=== PATIENT | male | born 1940 | race Caucasian/White ===

== ENCOUNTER 2020-02-11 14:47 | Inpatient (IN) | payer OTHER, MEDICAID ==
[~2020-02-11] VITALS: Ht 170.2 cm; Wt 64.0 kg
[2020-02-11] MEDS ORDERED: ASPIRIN 81MG TABLET PO ONE (16:15)
[2020-02-11 16:41] LABS: BASOPHILS % 1.4 % (0.0-2.0); EOSINOPHILS % 1.4 % (0.0-5.0); HEMATOCRIT. 28.7 % (42.0-52.0); HEMOGLOBIN. 9.9 g/dL (14.0-18.0); LYMPHOCYTES % 12.5 % (20.0-50.0); MEAN CORPUSCULAR HEMOGLOBIN 31.1 pg (28.0-32.0); MEAN CORPUSCULAR VOLUME 90.5 fL (80.0-94.0); MEAN PLATELET VOLUME 9.5 fl (7.4-10.4); MONOCYTES % 5.7 % (2.0-8.0); PLATELET 230 x1000/uL (130-400); RED BLOOD CELL COUNT 3.17 mill/uL (4.7-6.1)
[2020-02-11 16:45] LABS: CHLORIDE 112 mEq/L (98-107)
[2020-02-11 16:51] LABS: ETHANOL BLOOD < 10 mg/dL
[2020-02-11] MEDS: NITROGLYCERIN 0.4MG TABLET SL SL PRN ×2 (16:57→19:08)
[2020-02-11] MEDS ORDERED: IPRATROPIUM/ALBUTEROL 0.5-3(2.5)MG/3ML NEB ORI PRN (19:30)
[2020-02-11] MEDS ORDERED: ACETAMINOPHEN 325MG TABLET PO PRN ×2 (19:30)
[2020-02-11] MEDS ORDERED: DOCUSATE SODIUM 100MG CAPSULE PO PRN (19:30)
[2020-02-11] MEDS ORDERED: CLONIDINE 0.1MG TABLET PO PRN (19:30)
[2020-02-11] MEDS ORDERED: MAGNESIUM/ALUMINUM HYDROXIDE/SIMETHICONE 30ML UDC PO PRN (19:30)
[2020-02-11] MEDS ORDERED: ENOXAPARIN 40MG/0.4ML SYR SUBCUT SCH (19:30)
[2020-02-11 19:42] LABS: METHADONE URINE SCREEN NEGATIVE (NEGATIVE)
[2020-02-11 19:43] LABS: *AMPHETAMINES SCREEN URINE NEGATIVE (NEGATIVE); *BARBITURATES SCREEN URINE NEGATIVE (NEGATIVE); *BENZODIAZEPINES SCREEN URINE NEGATIVE (NEGATIVE); *COCAINE SCREEN URINE NEGATIVE (NEGATIVE); CANNABINOID URINE SCREEN NEGATIVE (NEGATIVE); OPIATES URINE SCREEN NEGATIVE (NEGATIVE); PHENCYCLIDINE URINE SCREEN NEGATIVE (NEGATIVE)
[2020-02-11 20:08] LABS: T4 FREE 1.01 ng/dL (0.76-1.46)
[2020-02-11 20:23] LABS: FOLIC ACID (FOLATE) SERUM 12.9 ng/mL (>5.38)
[2020-02-11] MEDS ORDERED: TRAMADOL 50MG TABLET PO PRN (20:38)
[2020-02-11] MEDS ORDERED: NITROGLYCERIN 0.4MG TABLET SL SL PRN (20:38)
[2020-02-11] MEDS ORDERED: MORPHINE SULFATE 2 MG/ML CPJ (NOT FOR IM USE) IV PRN (20:38)
[2020-02-11] MEDS ORDERED: GUAIFENESIN 200MG/10ML SUGAR FREE UDC PO PRN (20:39)
[2020-02-11] MEDS ORDERED: LISINOPRIL 20MG TABLET PO SCH (21:00)
[2020-02-11] MEDS ORDERED: FAMOTIDINE 20MG TABLET PO SCH (21:00)
[2020-02-11] MEDS ORDERED: ASCORBIC ACID 500 MG TABLET PO SCH (21:00)
[2020-02-11] MEDS ORDERED: ZOLPIDEM TARTRATE 5MG TABLET PO PRN (21:00)
[2020-02-11] MEDS ORDERED: METOPROLOL TARTRATE 25MG TABLET PO SCH (21:00)
[2020-02-11] MEDS ORDERED: DEXTROSE 50% WATER 50ML SYRINGE IV PRN (21:00)
[2020-02-11] MEDS: INSULIN LISPRO 100 UNITS/ML SUBCUT SCH (21:00)
[2020-02-11] MEDS: BLOOD SUGAR DIAGNOSTIC STRIP TEST SCH (21:00)
[2020-02-11] MEDS ORDERED: NA PHOS,M-B/NA PHOS,DI-BA ENEMA 118ML PR PRN (21:00)
[2020-02-11 23:11] LABS: CREATINE KINASE 57 IU/L (39-308)
[2020-02-11 23:12] LABS: CREATINE KINASE MB FRACTION < 1.0 ng/mL (0.5-3.6)
[2020-02-11] MEDS: METOPROLOL TARTRATE 25MG TABLET PO SCH (23:15)
[2020-02-12] VITALS: BP_SYST 123; BP_SYST 98; BP_DIAS 103; BP_DIAS 68
[2020-02-12] MEDS ORDERED: HYDR25TA PO (02:42)
[2020-02-12] MEDS ORDERED: ESOM40CA PO (02:42)
[2020-02-12] MEDS ORDERED: AMLO5TAB88 PO (02:42)
[2020-02-12 04:00] VITALS: BP 184/73
[2020-02-12] MEDS: BLOOD SUGAR DIAGNOSTIC STRIP TEST SCH ×4 (05:52→20:42)
[2020-02-12 06:24] LABS: CREATINE KINASE 60 IU/L (39-308); CREATINE KINASE MB FRACTION 1.2 ng/mL (0.5-3.6)
[2020-02-12] MEDS: INSULIN LISPRO 100 UNITS/ML SUBCUT SCH ×4 (07:50→20:43)
[2020-02-12] MEDS: METOPROLOL TARTRATE 25MG TABLET PO SCH ×2 (09:00→20:41)
[2020-02-12] MEDS ORDERED: LISINOPRIL 20MG TABLET PO SCH (09:00)
[2020-02-12] MEDS ORDERED: ASPIRIN 325MG EC TABLET PO SCH (09:00)
[2020-02-12] MEDS: ZINC SULFATE 220 MG ( 50 ) CAPSULE PO SCH (09:12)
[2020-02-12] MEDS: ASCORBIC ACID 500 MG TABLET PO SCH ×2 (09:12→20:40)
[2020-02-12] MEDS: FAMOTIDINE 20MG TABLET PO SCH ×2 (09:12→20:41)
[2020-02-12] MEDS: ENOXAPARIN 30MG/0.3ML SYR SUBCUT SCH (09:13)
[2020-02-12] MEDS: FERROUS SULFATE 325MG TABLET PO SCH ×2 (10:48→17:29)
[2020-02-12] MEDS: AMLODIPINE 5MG TABLET PO SCH ×2 (10:51→20:40)
[2020-02-12] MEDS: ONDANSETRON HCL 4MG/2ML INJ IV PRN (10:54)
[2020-02-12 11:52] LABS: HEMATOCRIT. 30.6 % (42.0-52.0); HEMOGLOBIN. 10.2 g/dL (14.0-18.0); MEAN CORPUSCULAR HEMOGLOBIN 30.5 pg (28.0-32.0); MEAN CORPUSCULAR VOLUME 91.6 fL (80.0-94.0); MEAN PLATELET VOLUME 10.6 fl (7.4-10.4); PLATELET 244 x1000/uL (130-400); RED BLOOD CELL COUNT 3.34 mill/uL (4.7-6.1); RED CELL DISTRIBUTION WIDTH 14.6 % (11.6-14.6)
[2020-02-12 12:00] VITALS: BP 136/68
[2020-02-12] MEDS ORDERED: PNEUMOCOCCAL 23-VAL P-SAC VAC 0.5 ML IM ONE (12:00)
[2020-02-12] MEDS ORDERED: INFLUENZA VIRUS VACCINE(AFLURIA) 0.5ML SYR IM ONE (12:00)
[2020-02-12 12:25] LABS: PLATELET ESTIMATE NORMAL
[2020-02-12 20:00] VITALS: BP 171/68
[2020-02-12] MEDS: ATORVASTATIN CALCIUM 20MG TABLET PO SCH (20:41)
[2020-02-13] VITALS: BP 159/69
[2020-02-13 06:25] LABS: BASOPHILS % 0.8 % (0.0-2.0); HEMATOCRIT. 26.5 % (42.0-52.0); LYMPHOCYTES % 17.4 % (20.0-50.0); MEAN CORPUSCULAR HEMOGLOBIN 30.6 pg (28.0-32.0); MEAN CORPUSCULAR VOLUME 90.1 fL (80.0-94.0); MEAN PLATELET VOLUME 9.9 fl (7.4-10.4); MONOCYTES % 6.3 % (2.0-8.0); NEUTROPHILS % 72.5 % (40.0-76.0); PLATELET 217 x1000/uL (130-400); RED BLOOD CELL COUNT 2.94 mill/uL (4.7-6.1); RED CELL DISTRIBUTION WIDTH 14.4 % (11.6-14.6)
[2020-02-13] MEDS: BLOOD SUGAR DIAGNOSTIC STRIP TEST SCH ×4 (06:52→21:54)
[2020-02-13] MEDS: INSULIN LISPRO 100 UNITS/ML SUBCUT SCH ×4 (06:52→21:55)
[2020-02-13 08:00] VITALS: BP 141/63
[2020-02-13] MEDS: ASPIRIN 81MG EC TABLET PO SCH (08:48)
[2020-02-13] MEDS: ASCORBIC ACID 500 MG TABLET PO SCH ×2 (08:48→21:54)
[2020-02-13] MEDS: FERROUS SULFATE 325MG TABLET PO SCH ×2 (08:48→17:32)
[2020-02-13] MEDS: ZINC SULFATE 220 MG ( 50 ) CAPSULE PO SCH (08:48)
[2020-02-13] MEDS: FAMOTIDINE 20MG TABLET PO SCH ×2 (08:48→21:54)
[2020-02-13] MEDS: ENOXAPARIN 30MG/0.3ML SYR SUBCUT SCH (08:48)
[2020-02-13] MEDS: AMLODIPINE 5MG TABLET PO SCH ×2 (08:49→21:53)
[2020-02-13] MEDS: METOPROLOL TARTRATE 25MG TABLET PO SCH ×2 (08:49→21:00)
[2020-02-13 12:00] VITALS: BP 122/40
[2020-02-13 16:00] VITALS: BP 122/50
[2020-02-13 20:00] VITALS: BP 121/71
[2020-02-13] MEDS: ATORVASTATIN CALCIUM 20MG TABLET PO SCH (21:54)
[2020-02-14] VITALS: BP 125/71
[2020-02-14 04:00] VITALS: BP 137/53
[2020-02-14] MEDS: BLOOD SUGAR DIAGNOSTIC STRIP TEST SCH ×4 (06:30→20:17)
[2020-02-14] MEDS: INSULIN LISPRO 100 UNITS/ML SUBCUT SCH ×4 (07:50→20:17)
[2020-02-14] MEDS: ASCORBIC ACID 500 MG TABLET PO SCH ×2 (08:49→20:54)
[2020-02-14] MEDS: FERROUS SULFATE 325MG TABLET PO SCH ×2 (08:49→17:48)
[2020-02-14] MEDS: AMLODIPINE 5MG TABLET PO SCH ×2 (08:49→20:54)
[2020-02-14] MEDS: ZINC SULFATE 220 MG ( 50 ) CAPSULE PO SCH (08:49)
[2020-02-14] MEDS: ASPIRIN 81MG EC TABLET PO SCH (08:49)
[2020-02-14] MEDS: METOPROLOL TARTRATE 25MG TABLET PO SCH ×2 (08:50→20:55)
[2020-02-14] MEDS: ENOXAPARIN 30MG/0.3ML SYR SUBCUT SCH (08:50)
[2020-02-14] MEDS: FAMOTIDINE 20MG TABLET PO SCH ×2 (08:50→20:54)
[2020-02-14 09:54] VITALS: BP 134/51
[2020-02-14] MEDS ORDERED: REGADENOSON 0.4 MG/5 ML IV NR (11:45)
[2020-02-14 17:05] VITALS: BP 149/51
[2020-02-14 20:00] VITALS: BP 149/73
[2020-02-14] MEDS: ATORVASTATIN CALCIUM 20MG TABLET PO SCH (20:54)
[2020-02-15] VITALS: BP 137/75
[2020-02-15 04:00] VITALS: BP 159/78
[2020-02-15] MEDS: BLOOD SUGAR DIAGNOSTIC STRIP TEST SCH ×4 (06:36→21:00)
[2020-02-15 08:00] VITALS: BP 177/66
[2020-02-15] MEDS: ENOXAPARIN 30MG/0.3ML SYR SUBCUT SCH (09:12)
[2020-02-15] MEDS: ZINC SULFATE 220 MG ( 50 ) CAPSULE PO SCH (09:12)
[2020-02-15] MEDS: ASPIRIN 81MG EC TABLET PO SCH (09:12)
[2020-02-15] MEDS: FERROUS SULFATE 325MG TABLET PO SCH ×2 (09:13→17:50)
[2020-02-15] MEDS: METOPROLOL TARTRATE 25MG TABLET PO SCH ×2 (09:13→21:00)
[2020-02-15] MEDS: ASCORBIC ACID 500 MG TABLET PO SCH ×2 (09:13→21:00)
[2020-02-15] MEDS: AMLODIPINE 5MG TABLET PO SCH ×2 (09:13→21:00)
[2020-02-15] MEDS: FAMOTIDINE 20MG TABLET PO SCH (09:13)
[2020-02-15] MEDS: INSULIN LISPRO 100 UNITS/ML SUBCUT SCH ×4 (09:16→21:00)
[2020-02-15 12:00] VITALS: BP 151/70
[2020-02-15 13:37] LABS: BG CARBOXYHEMOGLOBIN 0.3 % (0.5-1.5); BG DEOXYHEMOGLOBIN 3.9 % (0.0-5.0); BG FRACTION INSPIRED OXYGEN 21; BG HCO3 ACT 19.3 mmol/L (22.0-26.0); BG OXYGEN SATURATION 96.1 % (92.0-98.5); BG OXYHEMOGLOBIN 95.8 % (94.0-97.0); BG PCO2 33.1 mmHg (35.0-45.0); BG PH 7.384 (7.350-7.450); BG PO2 87.5 mmHg (75.0-100.0); BG SAMPLE SITE RIGHT RADIAL; BG TOTAL HEMOGLOBIN 10.4 g/dL (12.0-18.0); BG VENT MODE ROOM AIR
[2020-02-15 13:59] LABS: BASOPHILS % 0.8 % (0.0-2.0); EOSINOPHILS % 0.3 % (0.0-5.0); HEMATOCRIT. 29.4 % (42.0-52.0); HEMOGLOBIN. 10.3 g/dL (14.0-18.0); LYMPHOCYTES % 8.4 % (20.0-50.0); MEAN CORPUSCULAR HEMOGLOBIN 31.3 pg (28.0-32.0); MEAN CORPUSCULAR VOLUME 89.1 fL (80.0-94.0); MEAN PLATELET VOLUME 9.9 fl (7.4-10.4); MONOCYTES % 3.3 % (2.0-8.0); NEUTROPHILS % 87.2 % (40.0-76.0); PLATELET 260 x1000/uL (130-400); RED CELL DISTRIBUTION WIDTH 14.5 % (11.6-14.6)
[2020-02-15 16:00] VITALS: BP 167/75
[2020-02-15] MEDS ORDERED: VANCOMYCIN 1500MG in DEXTROSE 5% WATER 250ML IV SCH (16:00)
[2020-02-15] MEDS: LOSARTAN POTASSIUM 25 MG TABLET PO SCH (16:51)
[2020-02-15] MEDS: ONDANSETRON HCL 4MG/2ML INJ IV PRN (16:51)
[2020-02-15 20:00] VITALS: BP 157/92
[2020-02-15] MEDS: LORAZEPAM 2MG/ML CPJ IV PRN (20:53)
[2020-02-15] MEDS: ATORVASTATIN CALCIUM 20MG TABLET PO SCH (21:01)
[2020-02-15] MEDS: CEFAZOLIN 2,000 MG in DEXT 5% WATER 100 ML IV SCH (23:51)
[2020-02-16] VITALS (7 sets, daily range): BP systolic 127–206; BP diastolic 55–83
[2020-02-16] MEDS: FERROUS SULFATE 325MG TABLET PO SCH ×2 (06:30→17:45)
[2020-02-16] MEDS: BLOOD SUGAR DIAGNOSTIC STRIP TEST SCH ×4 (06:30→22:05)
[2020-02-16] MEDS: INSULIN LISPRO 100 UNITS/ML SUBCUT SCH ×4 (06:59→21:00)
[2020-02-16 08:45] LABS: BASOPHILS % 0.8 % (0.0-2.0); EOSINOPHILS % 2.7 % (0.0-5.0); HEMATOCRIT. 30.1 % (42.0-52.0); HEMOGLOBIN. 10.4 g/dL (14.0-18.0); LYMPHOCYTES % 14.3 % (20.0-50.0); MEAN CORPUSCULAR HEMOGLOBIN 31.1 pg (28.0-32.0); MEAN CORPUSCULAR VOLUME 90.1 fL (80.0-94.0); MONOCYTES % 4.9 % (2.0-8.0); NEUTROPHILS % 77.3 % (40.0-76.0); PLATELET 263 x1000/uL (130-400); RED BLOOD CELL COUNT 3.34 mill/uL (4.7-6.1); RED CELL DISTRIBUTION WIDTH 14.5 % (11.6-14.6)
[2020-02-16 08:58] LABS: PROTHROMBIN TIME 10.7 sec (9.6-11.0)
[2020-02-16] MEDS: LOSARTAN POTASSIUM 25 MG TABLET PO SCH (09:06)
[2020-02-16] MEDS: ZINC SULFATE 220 MG ( 50 ) CAPSULE PO SCH (09:06)
[2020-02-16] MEDS: ASPIRIN 81MG EC TABLET PO SCH (09:06)
[2020-02-16] MEDS: FAMOTIDINE 20MG TABLET PO SCH (09:06)
[2020-02-16] MEDS: ASCORBIC ACID 500 MG TABLET PO SCH ×2 (09:06→21:54)
[2020-02-16] MEDS: METOPROLOL TARTRATE 25MG TABLET PO SCH ×2 (09:07→21:53)
[2020-02-16] MEDS: AMLODIPINE 5MG TABLET PO SCH ×2 (09:08→21:53)
[2020-02-16 09:26] LABS: VITAMIN B12 SERUM 322 pg/mL (211-911)
[2020-02-16] MEDS: ENOXAPARIN 30MG/0.3ML SYR SUBCUT SCH (09:42)
[2020-02-16] MEDS: CEFAZOLIN 2,000 MG in DEXT 5% WATER 100 ML IV SCH ×2 (09:43→21:51)
[2020-02-16] MEDS ORDERED: VANCOMYCIN 1,000 MG in DEXT 5% WATER 250 ML IV SCH (14:00)
[2020-02-16] MEDS: RIFAMPIN 300MG CAPSULE PO SCH (17:45)
[2020-02-16] MEDS: ATORVASTATIN CALCIUM 20MG TABLET PO SCH (21:54)
[2020-02-17] VITALS: BP 119/74
[2020-02-17 04:00] VITALS: BP 125/65
[2020-02-17] MEDS: BLOOD SUGAR DIAGNOSTIC STRIP TEST SCH ×4 (07:20→20:41)
[2020-02-17] MEDS: INSULIN LISPRO 100 UNITS/ML SUBCUT SCH ×4 (07:50→20:44)
[2020-02-17 08:00] VITALS: BP 136/70
[2020-02-17] MEDS: METOPROLOL TARTRATE 25MG TABLET PO SCH ×2 (09:19→20:52)
[2020-02-17] MEDS: CEFAZOLIN 2,000 MG in DEXT 5% WATER 100 ML IV SCH ×2 (09:19→20:41)
[2020-02-17] MEDS: ASPIRIN 81MG EC TABLET PO SCH (09:21)
[2020-02-17] MEDS: FAMOTIDINE 20MG TABLET PO SCH (09:21)
[2020-02-17] MEDS: AMLODIPINE 5MG TABLET PO SCH ×2 (09:21→20:27)
[2020-02-17] MEDS: ASCORBIC ACID 500 MG TABLET PO SCH ×2 (09:21→20:27)
[2020-02-17] MEDS: ZINC SULFATE 220 MG ( 50 ) CAPSULE PO SCH (09:21)
[2020-02-17] MEDS: FERROUS SULFATE 325MG TABLET PO SCH ×2 (09:21→17:50)
[2020-02-17] MEDS: LOSARTAN POTASSIUM 25 MG TABLET PO SCH (09:21)
[2020-02-17] MEDS: RIFAMPIN 300MG CAPSULE PO SCH (09:21)
[2020-02-17] MEDS: ENOXAPARIN 30MG/0.3ML SYR SUBCUT SCH (09:26)
[2020-02-17] MEDS ORDERED: LIDOCAINE HCL 1% 20ML VIAL (Pyxis) INJ ONE (09:39)
[2020-02-17] MEDS ORDERED: SODIUM BICARBONATE 4% (2.4MEQ) 5ML VIAL IV ONE (09:39)
[2020-02-17 11:30] LABS: HEMATOCRIT. 29.6 % (42.0-52.0); HEMOGLOBIN. 10.3 g/dL (14.0-18.0); MEAN CORPUSCULAR HEMOGLOBIN 31.2 pg (28.0-32.0); MEAN CORPUSCULAR VOLUME 89.6 fL (80.0-94.0); PLATELET 264 x1000/uL (130-400); RED BLOOD CELL COUNT 3.31 mill/uL (4.7-6.1); RED CELL DISTRIBUTION WIDTH 14.7 % (11.6-14.6)
[2020-02-17 12:00] VITALS: BP 156/66
[2020-02-17] MEDS ORDERED: ZINC220T4 MT (14:39)
[2020-02-17] MEDS ORDERED: RIFA300C4 PO (14:39)
[2020-02-17] MEDS ORDERED: ASCO-339 MT (14:39)
[2020-02-17] MEDS ORDERED: ASPI-1497 MT (14:39)
[2020-02-17] MEDS ORDERED: FERR325T23 MT (14:39)
[2020-02-17] MEDS ORDERED: ATOR20TA MT (14:39)
[2020-02-17] MEDS ORDERED: METO25TA6 PO (14:39)
[2020-02-17 16:00] VITALS: BP 172/61
[2020-02-17 16:50] LABS: PLATELET ESTIMATE NORMAL
[2020-02-17 20:00] VITALS: BP 158/56
[2020-02-17] MEDS: ATORVASTATIN CALCIUM 20MG TABLET PO SCH (20:27)
[2020-02-18 00:36] VITALS: BP 144/64
[2020-02-18 04:00] VITALS: BP 173/63
[2020-02-18] MEDS: BLOOD SUGAR DIAGNOSTIC STRIP TEST SCH ×4 (07:20→21:57)
[2020-02-18] MEDS: INSULIN LISPRO 100 UNITS/ML SUBCUT SCH ×4 (07:50→22:11)
[2020-02-18] MEDS: CEFAZOLIN 2,000 MG in DEXT 5% WATER 100 ML IV SCH ×3 (08:00→22:45)
[2020-02-18 08:08] VITALS: BP 129/75
[2020-02-18] MEDS: LOSARTAN POTASSIUM 25 MG TABLET PO SCH (08:30)
[2020-02-18] MEDS: ASPIRIN 81MG EC TABLET PO SCH (08:30)
[2020-02-18] MEDS: ASCORBIC ACID 500 MG TABLET PO SCH ×2 (08:30→21:54)
[2020-02-18] MEDS: FAMOTIDINE 20MG TABLET PO SCH (08:30)
[2020-02-18] MEDS: RIFAMPIN 300MG CAPSULE PO SCH (08:30)
[2020-02-18] MEDS: FERROUS SULFATE 325MG TABLET PO SCH ×2 (08:30→17:48)
[2020-02-18] MEDS: METOPROLOL TARTRATE 25MG TABLET PO SCH ×2 (08:31→21:55)
[2020-02-18] MEDS: AMLODIPINE 5MG TABLET PO SCH ×2 (08:31→21:57)
[2020-02-18] MEDS: ZINC SULFATE 220 MG ( 50 ) CAPSULE PO SCH (08:31)
[2020-02-18] MEDS: ENOXAPARIN 30MG/0.3ML SYR SUBCUT SCH (08:35)
[2020-02-18 12:10] VITALS: BP 130/60
[2020-02-18] MEDS ORDERED: HALOPERIDOL LACTATE 5MG/ML VIAL IM SCH (13:00)
[2020-02-18 16:18] VITALS: BP 149/86
[2020-02-18 20:00] VITALS: BP 133/77
[2020-02-18] MEDS: ATORVASTATIN CALCIUM 20MG TABLET PO SCH (21:56)
[2020-02-18] MEDS: LORAZEPAM 2MG/ML CPJ IV PRN (22:28)
[2020-02-19] VITALS: BP 134/72
[2020-02-19 04:00] VITALS: BP 163/66
[2020-02-19 06:58] LABS: CHLORIDE 112 mEq/L (98-107)
[2020-02-19] MEDS: BLOOD SUGAR DIAGNOSTIC STRIP TEST SCH ×2 (07:43→12:20)
[2020-02-19] MEDS: INSULIN LISPRO 100 UNITS/ML SUBCUT SCH ×2 (07:50→12:50)
[2020-02-19 08:00] VITALS: BP 148/53
[2020-02-19] MEDS: FAMOTIDINE 20MG TABLET PO SCH (08:30)
[2020-02-19] MEDS: ASCORBIC ACID 500 MG TABLET PO SCH (08:30)
[2020-02-19] MEDS: ASPIRIN 81MG EC TABLET PO SCH (08:30)
[2020-02-19] MEDS: ZINC SULFATE 220 MG ( 50 ) CAPSULE PO SCH (08:30)
[2020-02-19] MEDS: FERROUS SULFATE 325MG TABLET PO SCH (08:30)
[2020-02-19] MEDS: ENOXAPARIN 30MG/0.3ML SYR SUBCUT SCH (08:31)
[2020-02-19] MEDS: AMLODIPINE 5MG TABLET PO SCH (08:31)
[2020-02-19] MEDS: METOPROLOL TARTRATE 25MG TABLET PO SCH (08:32)
[2020-02-19] MEDS: RIFAMPIN 300MG CAPSULE PO SCH (08:51)
[2020-02-19] MEDS: CEFAZOLIN 2,000 MG in DEXT 5% WATER 100 ML IV SCH (08:51)
[2020-02-19] MEDS: LOSARTAN POTASSIUM 25 MG TABLET PO SCH (09:00)
[2020-02-19] MEDS ORDERED: SODIUM BICARBONATE 4% (2.4MEQ) 5ML VIAL IV ONE (10:21)
[2020-02-19] MEDS ORDERED: LIDOCAINE HCL 1% 20ML VIAL (Pyxis) INJ ONE (10:22)
[2020-02-19 12:00] VITALS: BP 167/70
[2020-02-19 15:01] VITALS: BP 148/53
== END 2020-02-19 16:20 | disposition home health service (06) | DRG 871 ==
LOC: ER 15:00 → SUPCPDRO 19:25 → ENRESERV 20:41 → 6WST 21:51
PROVIDERS: ADMIT Internal Medicine; ATTEND Internal Medicine
PROC: 02HV33Z Insertion of Infusion Device into Superior Vena Cava, Percutaneous Approach (ICD-10-PCS; principal; 2020-02-17)
PROC: B5181ZA Fluoroscopy of Superior Vena Cava using Low Osmolar Contrast, Guidance (ICD-10-PCS; 2020-02-17)
PROC: B548ZZA Ultrasonography of Superior Vena Cava, Guidance (ICD-10-PCS; 2020-02-17)
PROC: 02HV33Z Insertion of Infusion Device into Superior Vena Cava, Percutaneous Approach (ICD-10-PCS; 2020-02-19)
PROC: B5181ZA Fluoroscopy of Superior Vena Cava using Low Osmolar Contrast, Guidance (ICD-10-PCS; 2020-02-19)
PROC: B548ZZA Ultrasonography of Superior Vena Cava, Guidance (ICD-10-PCS; 2020-02-19)
DX: A41.01 Sepsis due to Methicillin susceptible Staphylococcus aureus (principal); I50.33 Acute on chronic diastolic (congestive) heart failure; N17.0 Acute kidney failure with tubular necrosis; I16.1 Hypertensive emergency; I45.2 Bifascicular block; E44.1 Mild protein-calorie malnutrition; G93.40 Encephalopathy, unspecified; I47.2 Ventricular tachycardia; I13.0 Hypertensive heart and chronic kidney disease with heart failure and stage 1 through stage 4 chronic kidney disease, or unspecified chronic kidney disease; I42.9 Cardiomyopathy, unspecified; D63.8 Anemia in other chronic diseases classified elsewhere; D50.9 Iron deficiency anemia, unspecified; F03.90 Unspecified dementia, unspecified severity, without behavioral disturbance, psychotic disturbance, mood disturbance, and anxiety; E78.5 Hyperlipidemia, unspecified; B95.61 Methicillin susceptible Staphylococcus aureus infection as the cause of diseases classified elsewhere; E11.22 Type 2 diabetes mellitus with diabetic chronic kidney disease; I70.8 Atherosclerosis of other arteries; E78.00 Pure hypercholesterolemia, unspecified; E11.65 Type 2 diabetes mellitus with hyperglycemia; Z78.1 Physical restraint status; Z95.1 Presence of aortocoronary bypass graft; Z79.899 Other long term (current) drug therapy; Z79.4 Long term (current) use of insulin; Z95.2 Presence of prosthetic heart valve; Z68.22 Body mass index [BMI] 22.0-22.9, adult; I35.0 Nonrheumatic aortic (valve) stenosis; N18.9 Chronic kidney disease, unspecified; I25.10 Atherosclerotic heart disease of native coronary artery without angina pectoris
CPT/HCPCS: 36415; 36573; 36600; 71045; 76770; 76937; 80048; 80053; 80061; 80076; 80305; 80320; 82140; 82375; 82550; 82553; 82607; 82746; 82805; 82962; 83036; 83540; 83550; 83735; 83880; 84439; 84443; 84484; 85007; 85025; 85027; 85044; 86592; 87077; 93005; 93306; 93970; 95816; 97162; 97530; 99285; C1725; J0690; J1630; J1650; J1815; J2060; J2270; J2405; J3370; J3490; J7060; G0480

== ENCOUNTER 2020-02-24 23:27 | Inpatient (IN) | payer OTHER, MEDICAID ==
[~2020-02-24] VITALS: Ht 154.9 cm; Wt 59.4 kg
[~2020-02-24 23:27] MED LIST: AMLO5TAB88 PO; ASCO-339 MT; ASPI-1497 MT; ATOR20TA MT; FERR325T23 MT; METO25TA6 PO; RIFA300C4 PO; ZINC220T4 MT
[2020-02-24] MEDS ORDERED: ONDANSETRON HCL 4MG/2ML INJ IV STA (23:33)
[2020-02-24] MEDS ORDERED: ASPIRIN 81MG TABLET PO ONE (23:45)
[2020-02-25] MEDS ORDERED: VISCOUS LIDOCAINE 2% 15 ML UDC PO ONE
[2020-02-25] MEDS ORDERED: MAGNESIUM/ALUMINUM HYDROXIDE/SIMETHICONE 30ML UDC PO ONE
[2020-02-25 00:08] LABS: CHLORIDE 107 mEq/L (98-107)
[2020-02-25 00:10] LABS: BASOPHILS % 1.1 % (0.0-2.0); EOSINOPHILS % 4.1 % (0.0-5.0); HEMOGLOBIN. 9.6 g/dL (14.0-18.0); LYMPHOCYTES % 14.3 % (20.0-50.0); MEAN CORPUSCULAR HEMOGLOBIN 31.5 pg (28.0-32.0); MEAN CORPUSCULAR VOLUME 91.4 fL (80.0-94.0); MONOCYTES % 7.1 % (2.0-8.0); NEUTROPHILS % 73.4 % (40.0-76.0); PLATELET 228 x1000/uL (130-400); RED BLOOD CELL COUNT 3.06 mill/uL (4.7-6.1); RED CELL DISTRIBUTION WIDTH 14.9 % (11.6-14.6)
[2020-02-25] MEDS ORDERED: LABETALOL 5MG/ML SYR 20 MG/4 ML SYRINGE IV ONE (01:30)
[2020-02-25 15:25] VITALS: BP 177/70
[2020-02-25] MEDS ORDERED: NA PHOS,M-B/NA PHOS,DI-BA ENEMA 118ML PR PRN (16:30)
[2020-02-25] MEDS ORDERED: ACETAMINOPHEN 325MG TABLET PO PRN (16:30)
[2020-02-25] MEDS ORDERED: DOCUSATE SODIUM 100MG CAPSULE PO PRN (16:30)
[2020-02-25] MEDS ORDERED: IPRATROPIUM/ALBUTEROL 0.5-3(2.5)MG/3ML NEB NEB PRN (16:30)
[2020-02-25] MEDS ORDERED: LORAZEPAM 0.5MG TABLET PO PRN (16:30)
[2020-02-25] MEDS ORDERED: MAGNESIUM/ALUMINUM HYDROXIDE/SIMETHICONE 30ML UDC PO PRN (16:30)
[2020-02-25] MEDS ORDERED: ACETAMINOPHEN 650MG SUPP PR PRN (16:30)
[2020-02-25] MEDS ORDERED: CLONIDINE 0.1MG TABLET PO PRN (16:30)
[2020-02-25] MEDS ORDERED: ONDANSETRON HCL 4MG/2ML INJ IV PRN (16:30)
[2020-02-25] MEDS ORDERED: GUAIFENESIN 200MG/10ML SUGAR FREE UDC PO PRN (16:30)
[2020-02-25] MEDS ORDERED: HYDROCODONE/ACETAMINOPHEN 5/325MG TABLET PO PRN (16:30)
[2020-02-25] MEDS ORDERED: DIPHENHYDRAMINE 50MG/ML VIAL IV PRN (16:30)
[2020-02-25] MEDS ORDERED: HYDRALAZINE 20MG/ML VIAL IV PRN (16:30)
[2020-02-25 16:53] VITALS: BP 194/75
[2020-02-25] MEDS: FAMOTIDINE 20MG/2ML VIAL IV SCH (18:19)
[2020-02-25] MEDS: RIFAMPIN 300MG CAPSULE PO SCH (18:19)
[2020-02-25 20:00] VITALS: BP 133/59
[2020-02-25] MEDS: METOPROLOL TARTRATE 25MG TABLET PO SCH (20:08)
[2020-02-25] MEDS: CEFAZOLIN 2,000 MG in DEXT 5% WATER 100 ML IV SCH (20:32)
[2020-02-25] MEDS: NITROGLYCERIN OINT 1GM/INCH UDPKT TD SCH (21:00)
[2020-02-25 22:00] VITALS: BP 178/55
[2020-02-26] VITALS (12 sets, daily range): BP systolic 103–172; BP diastolic 54–82
[2020-02-26 00:50] LABS: CREATINE KINASE 94 IU/L (39-308)
[2020-02-26] MEDS: NITROGLYCERIN OINT 1GM/INCH UDPKT TD SCH ×3 (06:05→23:26)
[2020-02-26] MEDS: CEFAZOLIN 2,000 MG in DEXT 5% WATER 100 ML IV SCH ×2 (06:05→18:14)
[2020-02-26 07:42] LABS: BASOPHILS % 1.2 % (0.0-2.0); EOSINOPHILS % 4.1 % (0.0-5.0); HEMATOCRIT. 25.3 % (42.0-52.0); HEMOGLOBIN. 8.8 g/dL (14.0-18.0); LYMPHOCYTES % 15.6 % (20.0-50.0); MEAN CORPUSCULAR HEMOGLOBIN 31.5 pg (28.0-32.0); MEAN CORPUSCULAR VOLUME 90.9 fL (80.0-94.0); MEAN PLATELET VOLUME 10.4 fl (7.4-10.4); MONOCYTES % 6.1 % (2.0-8.0); PLATELET 226 x1000/uL (130-400); RED BLOOD CELL COUNT 2.78 mill/uL (4.7-6.1); RED CELL DISTRIBUTION WIDTH 14.7 % (11.6-14.6)
[2020-02-26 08:32] LABS: CHLORIDE 110 mEq/L (98-107)
[2020-02-26] MEDS: ASPIRIN 81MG EC TABLET PO SCH (08:32)
[2020-02-26] MEDS: RIFAMPIN 300MG CAPSULE PO SCH (08:32)
[2020-02-26] MEDS: FAMOTIDINE 20MG/2ML VIAL IV SCH (08:32)
[2020-02-26] MEDS: METOPROLOL TARTRATE 25MG TABLET PO SCH ×2 (08:38→23:26)
[2020-02-26 08:41] LABS: T4 FREE 1.05 ng/dL (0.76-1.46)
[2020-02-26 08:42] LABS: CREATINE KINASE 86 IU/L (39-308)
[2020-02-26 08:43] LABS: CREATINE KINASE MB FRACTION 1.1 ng/mL (0.5-3.6)
[2020-02-26] MEDS: HYDRALAZINE 20MG/ML VIAL IV PRN (13:27)
[2020-02-27] VITALS (11 sets, daily range): BP systolic 117–168; BP diastolic 48–78
[2020-02-27] MEDS: NITROGLYCERIN OINT 1GM/INCH UDPKT TD SCH ×3 (05:48→21:03)
[2020-02-27] MEDS: HYDRALAZINE 20MG/ML VIAL IV PRN ×2 (05:49→21:21)
[2020-02-27] MEDS: CEFAZOLIN 1000MG PREMIX 50 ML IV SCH ×2 (05:56→18:06)
[2020-02-27 07:01] LABS: HEMOGLOBIN 8.8 g/dL (14.0-18.0); MEAN CORPUSCULAR HEMOGLOBIN 31.2 pg (28.0-32.0); PLATELET 210 x1000/uL (130-400); RED BLOOD CELL COUNT 2.81 mill/uL (4.7-6.1); RED CELL DISTRIBUTION WIDTH 14.2 % (11.6-14.6)
[2020-02-27] MEDS: ASPIRIN 81MG EC TABLET PO SCH (09:41)
[2020-02-27] MEDS: FAMOTIDINE 20MG/2ML VIAL IV SCH (09:41)
[2020-02-27] MEDS: RIFAMPIN 300MG CAPSULE PO SCH (09:42)
[2020-02-27] MEDS: METOPROLOL TARTRATE 25MG TABLET PO SCH ×2 (09:42→21:04)
[2020-02-28] VITALS (10 sets, daily range): BP systolic 114–195; BP diastolic 47–98
[2020-02-28] MEDS: CEFAZOLIN 1000MG PREMIX 50 ML IV SCH ×2 (05:01→18:00)
[2020-02-28] MEDS: NITROGLYCERIN OINT 1GM/INCH UDPKT TD SCH ×3 (05:03→21:38)
[2020-02-28 06:49] LABS: HEMOGLOBIN 8.2 g/dL (14.0-18.0); MEAN CORPUSCULAR HEMOGLOBIN 31.3 pg (28.0-32.0); MEAN CORPUSCULAR VOLUME 91.3 fL (80.0-94.0); PLATELET 217 x1000/uL (130-400); RED BLOOD CELL COUNT 2.63 mill/uL (4.7-6.1); RED CELL DISTRIBUTION WIDTH 14.4 % (11.6-14.6)
[2020-02-28] MEDS: FAMOTIDINE 20MG/2ML VIAL IV SCH (08:56)
[2020-02-28] MEDS: ASPIRIN 81MG EC TABLET PO SCH (08:57)
[2020-02-28] MEDS: RIFAMPIN 300MG CAPSULE PO SCH (08:57)
[2020-02-28] MEDS: METOPROLOL TARTRATE 25MG TABLET PO SCH ×2 (08:57→20:21)
[2020-02-28 09:10] LABS: IMMUNOGLOBULIN A 203 mg/dL (61-437); IMMUNOGLOBULIN G 1226 mg/dL (603-1613); IMMUNOGLOBULIN M 76 mg/dL (15-143)
[2020-02-28] MEDS: HYDRALAZINE 20MG/ML VIAL IV PRN (21:36)
[2020-02-29] VITALS (10 sets, daily range): BP systolic 97–170; BP diastolic 50–90
[2020-02-29] MEDS: CEFAZOLIN 1000MG PREMIX 50 ML IV SCH (06:29)
[2020-02-29] MEDS: NITROGLYCERIN OINT 1GM/INCH UDPKT TD SCH ×2 (06:32→14:09)
[2020-02-29] MEDS: FAMOTIDINE 20MG/2ML VIAL IV SCH (08:17)
[2020-02-29] MEDS: METOPROLOL TARTRATE 25MG TABLET PO SCH (08:17)
[2020-02-29] MEDS: ASPIRIN 81MG EC TABLET PO SCH (08:17)
[2020-02-29] MEDS: RIFAMPIN 300MG CAPSULE PO SCH (08:17)
[2020-02-29] MEDS: HYDRALAZINE 20MG/ML VIAL IV PRN (12:13)
[2020-03-01 13:06] LABS: A/G RATIO 0.9 (0.7-1.7); ALPHA-1-GLOBULIN 0.2 g/dL (0.0-0.4); BETA GLOBULIN 1.1 g/dL (0.7-1.3); GAMMA GLOBULINS 1.2 g/dL (0.4-1.8); GLOBULIN TOTAL 3.5 g/dL (2.2-3.9); M-SPIKE Not Observed g/dL (Not Observed); TOTAL PROTEIN SERUM 6.5 g/dL (6.0-8.5)
== END 2020-02-29 17:41 | disposition home health service (06) | DRG 438 ==
LOC: ER 23:38 → 3WST 02-25 02:51 → ENRESERV 02-25 14:05
PROVIDERS: ADMIT Internal Medicine; ATTEND Internal Medicine
DX: K85.90 Acute pancreatitis without necrosis or infection, unspecified (principal); I50.33 Acute on chronic diastolic (congestive) heart failure; I21.9 Acute myocardial infarction, unspecified; C79.9 Secondary malignant neoplasm of unspecified site; G93.40 Encephalopathy, unspecified; I13.0 Hypertensive heart and chronic kidney disease with heart failure and stage 1 through stage 4 chronic kidney disease, or unspecified chronic kidney disease; I38 Endocarditis, valve unspecified; C61 Malignant neoplasm of prostate; D50.9 Iron deficiency anemia, unspecified; E11.22 Type 2 diabetes mellitus with diabetic chronic kidney disease; E11.649 Type 2 diabetes mellitus with hypoglycemia without coma; E78.5 Hyperlipidemia, unspecified; F03.90 Unspecified dementia, unspecified severity, without behavioral disturbance, psychotic disturbance, mood disturbance, and anxiety; B95.61 Methicillin susceptible Staphylococcus aureus infection as the cause of diseases classified elsewhere; I25.10 Atherosclerotic heart disease of native coronary artery without angina pectoris; N18.9 Chronic kidney disease, unspecified; Z79.899 Other long term (current) drug therapy; Z85.46 Personal history of malignant neoplasm of prostate; Z86.73 Personal history of transient ischemic attack (TIA), and cerebral infarction without residual deficits; Z95.2 Presence of prosthetic heart valve; Z95.1 Presence of aortocoronary bypass graft; Z79.82 Long term (current) use of aspirin
CPT/HCPCS: 36415; 71045; 71250; 74021; 74176; 80048; 80053; 82105; 82378; 82550; 82553; 82784; 82962; 83880; 84153; 84155; 84165; 84439; 84443; 84484; 85025; 85027; 86301; 86334; 92610; 93005; 93970; 97162; 99285; J0360; J0690; J2405; J3490; J7060; G0103